=== PATIENT | female | born 1945 | race Caucasian/White ===

== ENCOUNTER 2019-10-10 14:24 | Inpatient (IN) | payer MEDICARE ==
[~2019-10-10] VITALS: Ht 167.6 cm; Wt 60.0 kg
[~2019-10-10 14:24] MED LIST: MECL-159 PO
[2019-10-10] MEDS ORDERED: normal saline 1000ml 1,000 ML IV ONE (14:55)
[2019-10-10 15:19] LABS: BASOPHILS % (AUTO) 0.3 % (0-1); EOSINOPHILS % (AUTO) 0.5 % (0-6); HEMATOCRIT 40.7 % (35.0-45.0); HEMOGLOBIN 13.1 g/dl (12.0-16.0); LYMPHOCYTES # (AUTO) 1.9 X10'3 (1.1-4.8); LYMPHOCYTES % (AUTO) 20.6 % (21-51); MEAN CORPUSCULAR HEMOGLOBIN 26.4 PG (27.0-31.0); MEAN CORPUSCULAR HGB CONC 32.2 g/dL (33.0-36.5); MEAN PLATELET VOLUME 7.5 FL (7.4-10.4); MONOCYTES # (AUTO) 0.8 X10'3 (0-0.9); MONOCYTES % (AUTO) 8.6 % (2-12); NEUTROPHILS # (AUTO) 6.5 X10'3 (1.8-7.7); PLATELET COUNT 307 X10'3 (140-440); RED BLOOD COUNT 4.97 X10'6 (4.20-5.60); RED CELL DISTRIBUTION WIDTH 16.4 % (11.5-14.5); WHITE BLOOD COUNT 9.3 X10'3 (4.5-11.0)
[2019-10-10 15:35] LABS: PARTIAL THROMBOPLASTIN TIME 25 SECONDS (22-32)
[2019-10-10 15:48] LABS: ALANINE AMINOTRANSFERASE 19 U/L (12-78); ALBUMIN 3.3 G/DL (3.4-5.0); ALBUMIN/GLOBULIN RATIO 0.8 (1.1-1.5); ALKALINE PHOSPHATASE 146 IU/L (46-116); ANION GAP 8 (8-16); ASPARTATE AMINO TRANSFERASE 46 U/L (10-37); BILIRUBIN,TOTAL 0.4 MG/DL (0.1-1.0); BLOOD UREA NITROGEN 18 MG/DL (7-18); BUN/CREATININE RATIO 14.1 (6.6-38.0); CALCIUM 11.2 MG/DL (8.5-10.1); CHLORIDE 121 MMOL/L (99-107); CREATININE 1.28 MG/DL (0.40-0.90); ETHANOL < 0.010 GM/DL (0.0-0.010); GLUCOSE 98 MG/DL (70-104); TOTAL CARBON DIOXIDE 32.8 MMOL/L (24-32); TOTAL PROTEIN 7.2 G/DL (6.4-8.2); eGFR 41 ML/MIN
[2019-10-10 15:51] LABS: SODIUM 162 MMOL/L (135-145)
[2019-10-10 16:02] LABS: CLARITY,URINE CLEAR (Clear); COLOR,URINE YELLOW (Yellow); GLUCOSE, URINE NEGATIVE (Neg); KETONES,URINE NEGATIVE (Neg); LEUKOCYTE ESTERASE ,URINE NEGATIVE (Neg); NITRITES, URINE NEGATIVE (Neg); OCCULT BLOOD,URINE NEGATIVE (Neg); PROTEIN,URINE NEGATIVE (Neg); UA COLLECTION TYPE STRAIGHT CATH; UROBILINOGEN,URINE 0.2 E.U/dL (0.2-1.0)
[2019-10-10 16:10] LABS: URINE AMPHETAMINE SCREEN NEGATIVE (Neg); URINE BARBITUATE SCREEN NEGATIVE (Neg); URINE BENZODIAZEPINES SCREEN NEGATIVE (Neg); URINE CANNABINOID SCREEN NEGATIVE (Neg); URINE COCAINE SCREEN NEGATIVE (Neg); URINE METHADONE SCREEN NEGATIVE (Neg); URINE OPIATE SCREEN NEGATIVE (Neg); URINE PHENCYCLIDINE SCREEN NEGATIVE (Neg)
[2019-10-10 16:28] LABS: MAGNESIUM 2.1 MG/DL (1.5-2.4); PHOSPHORUS 3.9 MG/DL (2.3-4.5)
[2019-10-10] MEDS ORDERED: potassium CL 20mEq in D5-1/2NS 1,000 ML IV SCH (16:30)
[2019-10-10 16:47] LABS: OSMOLALITY 331 MOSM/K (280-300)
[2019-10-10] MEDS: dextrose 5%-1/2 normal saline 1,000 ML IV SCH (17:02)
[2019-10-10] MEDS ORDERED: bisacodyl 10mg suppository rectal RC PRN (17:05)
[2019-10-10] MEDS ORDERED: potassium Cl 20 mEq SR tablet PO PRN (17:05)
[2019-10-10] MEDS ORDERED: HYDROcodone/acetaminophen 10/325mg tab PO PRN (17:05)
[2019-10-10] MEDS ORDERED: HYDROcodone/acetaminophen 5mg/325mg tablet PO PRN (17:05)
[2019-10-10] MEDS ORDERED: magnesium 4gm in 100ml NS 100 ML IV PRN (17:05)
[2019-10-10] MEDS ORDERED: magnesium 2GM in 50ml NS 50 ML IV PRN (17:05)
[2019-10-10] MEDS ORDERED: ondansetron/PF 4mg/2ml inj IV PRN (17:05)
[2019-10-10] MEDS ORDERED: morphine 2 MG/ML inj. syringe IV PRN ×2 (17:05)
[2019-10-10] MEDS ORDERED: acetaminophen 325mg tablet PO PRN ×2 (17:05)
[2019-10-10] MEDS ORDERED: magnesium Cl slow-release 64mg tablet PO PRN (17:05)
[2019-10-10] MEDS ORDERED: magnesium hydroxide 30ml (MOM) UD suspension PO PRN (17:05)
[2019-10-10] MEDS ORDERED: mag hydrox/Alum hydrox/simeth 30ml oral suspension PO PRN (17:05)
[2019-10-10] MEDS ORDERED: acetaminophen 650mg rectal suppository RC PRN (17:05)
[2019-10-10] MEDS ORDERED: potassium CL 10mEq/100ml bag 100 ML IV PRN (17:05)
[2019-10-10] MEDS ORDERED: diphenhydrAMINE 25mg capsule PO PRN (17:05)
[2019-10-10 17:41] LABS: HEMOGLOBIN A1C 5.9 % (4.5-6.2)
--- NOTE | 2019-10-10 19:12 | NUR ---
Patient in room ED 7. I have received report from RAMEZ CARDENAS IN ER and had the opportunity to ask questions. AWAITING PATIENT ARRIVAL.
[2019-10-10 19:15] VITALS: BP 141/75
--- NOTE | 2019-10-10 19:43 | NUR ---
PATIENT UP TO FLOOR VIA GURNEY. ACCOMPANIED BY DIRECTOR CLIENT SERVICESGARCIA MCFARLANE RN. PATIENT BELONGINGS PLACED IN BEDSIDE TABLE. PLACED ON DIP LUBE OPERATOR 60. BED ALARM ACTIVATED. ON ROOM AIR. 20 MEQ K IN NS INFUSING AT 100 ML/HR PER PROVIDER ORDER. MRSA SWAB OBTAINED. WILL CONTINUE TO MONITOR CLOSELY.
[2019-10-10] MEDS: K and/or MAG REPLACEMENT MC SCH (20:00)
[2019-10-10] MEDS: heparin, porcine 5000 units/ml vial SQ SCH (21:09)
[2019-10-10 23:00] VITALS: BP 156/56
[2019-10-11 03:00] VITALS: BP 113/61
[2019-10-11] MEDS: dextrose 5%-1/2 normal saline 1,000 ML IV SCH (03:50)
[2019-10-11 05:15] LABS: BASOPHILS % (AUTO) 0.6 % (0-1); EOSINOPHILS # (AUTO) 0.1 X10'3 (0-0.9); EOSINOPHILS % (AUTO) 1.6 % (0-6); HEMATOCRIT 39.1 % (35.0-45.0); HEMOGLOBIN 12.7 g/dl (12.0-16.0); LYMPHOCYTES % (AUTO) 29.1 % (21-51); MEAN CORPUSCULAR HEMOGLOBIN 26.8 PG (27.0-31.0); MEAN CORPUSCULAR HGB CONC 32.4 g/dL (33.0-36.5); MEAN CORPUSCULAR VOLUME 82.8 FL (78-98); MEAN PLATELET VOLUME 7.8 FL (7.4-10.4); MONOCYTES # (AUTO) 0.6 X10'3 (0-0.9); MONOCYTES % (AUTO) 8.3 % (2-12); NEUTROPHILS # (AUTO) 4.1 X10'3 (1.8-7.7); NEUTROPHILS % (AUTO) 60.4 % (42-75); PLATELET COUNT 281 X10'3 (140-440); RED BLOOD COUNT 4.72 X10'6 (4.20-5.60); WHITE BLOOD COUNT 6.8 X10'3 (4.5-11.0)
[2019-10-11 05:32] LABS: ALANINE AMINOTRANSFERASE 20 U/L (12-78); ALBUMIN/GLOBULIN RATIO 0.8 (1.1-1.5); ALKALINE PHOSPHATASE 137 IU/L (46-116); ANION GAP 7 (8-16); ASPARTATE AMINO TRANSFERASE 48 U/L (10-37); BILIRUBIN,TOTAL 0.5 MG/DL (0.1-1.0); BLOOD UREA NITROGEN 14 MG/DL (7-18); BUN/CREATININE RATIO 12.5 (6.6-38.0); CALCIUM 10.8 MG/DL (8.5-10.1); CHLORIDE 121 MMOL/L (99-107); CHOL/HDL RATIO 3.7 (0.00-4.99); CHOLESTEROL 240 MG/DL (0-200); CREATININE 1.12 MG/DL (0.40-0.90); GLUCOSE 105 MG/DL (70-104); HDL CHOLESTEROL 65 MG/DL (35-60); LDL CHOLESTEROL 146 MG/DL (50-100); MAGNESIUM 1.8 MG/DL (1.5-2.4); PHOSPHORUS 3.4 MG/DL (2.3-4.5); TOTAL CARBON DIOXIDE 32.2 MMOL/L (24-32); TOTAL PROTEIN 6.6 G/DL (6.4-8.2); TRIGLYCERIDES 148 MG/DL (20-135); eGFR 47 ML/MIN
[2019-10-11 05:50] LABS: POTASSIUM 2.7 MMOL/L (3.5-5.1); SODIUM 160 MMOL/L (135-145)
[2019-10-11] MEDS: potassium Cl 20 mEq SR tablet PO PRN ×3 (05:51→22:15)
[2019-10-11 06:00] VITALS: BP 140/71
--- NOTE | 2019-10-11 06:16 | NUR ---
CRITICAL NA-160 AND K- 2.7. RESULTS REPORTED TO DR. BOLANOS VIA TELEPHONE. REPLACE ELECTROLYTES PER PROTOCOL. DAY RN AWARE.
--- NOTE | 2019-10-11 06:17 | NUR ---
Patient in room PCU 3009. I have received report from Nabor MYRICK and had the opportunity to ask questions and assume patient care.
[2019-10-11] MEDS: heparin, porcine 5000 units/ml vial SQ SCH ×2 (07:39→22:16)
[2019-10-11] MEDS: K and/or MAG REPLACEMENT MC SCH ×2 (08:00→20:00)
--- NOTE | 2019-10-11 10:02 | NUR ---
Pt with a low Bret of 11. Per physical assessment pt with no edema or wounds. Pt admit with confusion with hx dementia. Pt documented with garbled speech and expressive aphasia. Pt currently on a heart healthy diet, pending documentation of PO intake. Pt would benefit from BSS with ST to monitor need for texture modification, recommended consult has been ordered. Will continue to follow. Addendum: 10/11/19 at [address] Amended: Links added.
[2019-10-11 11:00] VITALS: BP 134/72
[2019-10-11 11:07] LABS: OSMOLALITY UA 540 MOSM/K (50-1400)
[2019-10-11 11:08] LABS: SODIUM,URINE RANDOM 43 MEQ/L
[2019-10-11] MEDS: dextrose 5%-water 1,000 ML IV SCH ×3 (11:21→22:41)
[2019-10-11] MEDS ORDERED: CHOL500044 PO (14:45)
[2019-10-11] MEDS ORDERED: HYDR50TA65 PO (14:45)
[2019-10-11] MEDS ORDERED: LORA-268 PO (14:45)
[2019-10-11] MEDS ORDERED: TRIA30CR TP (14:45)
[2019-10-11] MEDS ORDERED: MEMA10TA PO (14:45)
[2019-10-11] MEDS ORDERED: OMEP40CA13 PO (14:45)
[2019-10-11] MEDS ORDERED: TEMA7.5C2 PO (14:45)
[2019-10-11] MEDS ORDERED: GALA4TAB PO (14:45)
[2019-10-11] MEDS ORDERED: OLAN5TAB3 PO (14:45)
--- NOTE | 2019-10-11 14:53 | NUR ---
Addie Live. 3009. [facility] Home Med Rec is complete and ready to be reviewed. TY. Samson [phone]
[2019-10-11 15:00] VITALS: BP 133/67
--- NOTE | 2019-10-11 15:54 | NUR ---
Paged Addie Stoddard. [phone]. COUNTS INCLUDE 234 BEDS AT THE [facility] patient nasal swab came back positive for MRSA. Samson [id number]
--- NOTE | 2019-10-11 18:06 | NUR ---
Problems reprioritized. Patient report given, questions answered & plan of care reviewed with Nabor MYRICK.
--- NOTE | 2019-10-11 18:30 | NUR ---
Patient in room PCU 3009. I have received report from RAMEZ DYER and had the opportunity to ask questions and assume patient care. PATIENT AWAKE FOR BEDSIDE REPORT. ON ROOM AIR, D5W INFUSING AT 100 ML/HR PER PROVIDER ORDER. WILL CONTINUE TO MONITOR CLOSELY.
[2019-10-11 18:45] VITALS: BP 127/73
[2019-10-11] MEDS ORDERED: GALANTAMINE 4 MG PO SCH (20:00)
[2019-10-11] MEDS: GALANTAMINE 4 MG PO SCH (20:00)
[2019-10-11] MEDS: LORazepam 0.5 MG tablet PO SCH (22:12)
[2019-10-11] MEDS: memantine 5mg tablet PO SCH (22:12)
[2019-10-11] MEDS: OLANZAPINE 5 MG TABLET PO SCH (22:13)
[2019-10-11] MEDS: hydrOXYzine 25 MG tablet PO SCH (22:14)
[2019-10-11] MEDS: triamcinolone acet 0.1% cream 15gm TP SCH (22:17)
[2019-10-11] MEDS ORDERED: LIDOcaine 2% 10ml TOPICAL JELLY (Urojet) TP ONE (22:30)
[2019-10-11 23:00] VITALS: BP 136/64
[2019-10-12] VITALS (7 sets, daily range): BP systolic 81–129; BP diastolic 50–106
[2019-10-12 05:09] LABS: BASOPHILS % (AUTO) 0.3 % (0-1); EOSINOPHILS # (AUTO) 0.2 X10'3 (0-0.9); EOSINOPHILS % (AUTO) 1.5 % (0-6); HEMATOCRIT 35.9 % (35.0-45.0); HEMOGLOBIN 11.7 g/dl (12.0-16.0); LYMPHOCYTES # (AUTO) 2.1 X10'3 (1.1-4.8); LYMPHOCYTES % (AUTO) 19.8 % (21-51); MEAN CORPUSCULAR HGB CONC 32.6 g/dL (33.0-36.5); MEAN PLATELET VOLUME 8.4 FL (7.4-10.4); MONOCYTES # (AUTO) 0.7 X10'3 (0-0.9); NEUTROPHILS # (AUTO) 7.5 X10'3 (1.8-7.7); NEUTROPHILS % (AUTO) 71.4 % (42-75); PLATELET COUNT 239 X10'3 (140-440); RED BLOOD COUNT 4.33 X10'6 (4.20-5.60); RED CELL DISTRIBUTION WIDTH 16.3 % (11.5-14.5); WHITE BLOOD COUNT 10.4 X10'3 (4.5-11.0)
[2019-10-12 05:42] LABS: ALANINE AMINOTRANSFERASE 23 U/L (12-78); ALBUMIN 2.6 G/DL (3.4-5.0); ALBUMIN/GLOBULIN RATIO 0.8 (1.1-1.5); ALKALINE PHOSPHATASE 120 IU/L (46-116); ANION GAP 8 (8-16); ASPARTATE AMINO TRANSFERASE 35 U/L (10-37); BILIRUBIN,TOTAL 0.4 MG/DL (0.1-1.0); BLOOD UREA NITROGEN 17 MG/DL (7-18); BUN/CREATININE RATIO 15.7 (6.6-38.0); CALCIUM 10.2 MG/DL (8.5-10.1); CHLORIDE 114 MMOL/L (99-107); CREATININE 1.08 MG/DL (0.40-0.90); GLUCOSE 105 MG/DL (70-104); MAGNESIUM 1.6 MG/DL (1.5-2.4); PHOSPHORUS 3.8 MG/DL (2.3-4.5); POTASSIUM 3.6 MMOL/L (3.5-5.1); SODIUM 149 MMOL/L (135-145); TOTAL CARBON DIOXIDE 27.3 MMOL/L (24-32); TOTAL PROTEIN 5.9 G/DL (6.4-8.2); eGFR 49 ML/MIN
--- NOTE | 2019-10-12 06:26 | NUR ---
Problems reprioritized. Patient report given, questions answered & plan of care reviewed with RAMEZ DYER.
--- NOTE | 2019-10-12 06:27 | NUR ---
Patient in room PCU 3009. I have received report from Nabor MYRICK and had the opportunity to ask questions and assume patient care.
[2019-10-12] MEDS: triamcinolone acet 0.1% cream 15gm TP SCH ×2 (08:00→20:25)
[2019-10-12] MEDS: GALANTAMINE 4 MG PO SCH ×2 (08:00→20:00)
[2019-10-12] MEDS: K and/or MAG REPLACEMENT MC SCH ×2 (08:00→20:00)
[2019-10-12] MEDS: heparin, porcine 5000 units/ml vial SQ SCH ×2 (08:10→20:26)
[2019-10-12] MEDS: vitamin D (cholecalciferol) 1,000 unit tablet PO SCH (08:10)
[2019-10-12] MEDS: memantine 5mg tablet PO SCH ×2 (08:10→20:26)
[2019-10-12] MEDS: pantoprazole 40mg Tablet.DR PO SCH (08:10)
[2019-10-12] MEDS: LORazepam 0.5 MG tablet PO SCH ×2 (08:10→20:26)
[2019-10-12] MEDS: OLANZAPINE 5 MG TABLET PO SCH ×2 (08:10→20:26)
--- NOTE | 2019-10-12 12:56 | NUR ---
IV infiltrated. paged picc to place new IV.
[2019-10-12] MEDS: dextrose 5%-water 1,000 ML IV SCH ×2 (15:59→20:37)
--- NOTE | 2019-10-12 18:14 | NUR ---
Problems reprioritized. Patient report given, questions answered & plan of care reviewed with Gabrielle MYRICK.
--- NOTE | 2019-10-12 18:16 | NUR ---
Patient in room U 3009. I have received report from RAMEZ Davies and had the opportunity to ask questions and assume patient care. Addendum: 10/12/19 at 1817 by Sapphire Cassidy RN Amended: Links added.
[2019-10-12] MEDS: hydrOXYzine 25 MG tablet PO SCH (20:26)
[2019-10-13 02:00] VITALS: BP 114/48
[2019-10-13 05:26] LABS: BASOPHILS % (AUTO) 0.2 % (0-1); EOSINOPHILS # (AUTO) 0.1 X10'3 (0-0.9); EOSINOPHILS % (AUTO) 0.8 % (0-6); HEMATOCRIT 37.2 % (35.0-45.0); HEMOGLOBIN 12.1 g/dl (12.0-16.0); LYMPHOCYTES # (AUTO) 2.6 X10'3 (1.1-4.8); LYMPHOCYTES % (AUTO) 18.3 % (21-51); MEAN CORPUSCULAR HEMOGLOBIN 26.7 PG (27.0-31.0); MEAN CORPUSCULAR HGB CONC 32.5 g/dL (33.0-36.5); MEAN CORPUSCULAR VOLUME 82.1 FL (78-98); MEAN PLATELET VOLUME 8.6 FL (7.4-10.4); MONOCYTES # (AUTO) 0.9 X10'3 (0-0.9); MONOCYTES % (AUTO) 6.5 % (2-12); NEUTROPHILS # (AUTO) 10.6 X10'3 (1.8-7.7); NEUTROPHILS % (AUTO) 74.2 % (42-75); PLATELET COUNT 263 X10'3 (140-440); RED BLOOD COUNT 4.53 X10'6 (4.20-5.60); RED CELL DISTRIBUTION WIDTH 16.5 % (11.5-14.5); WHITE BLOOD COUNT 14.3 X10'3 (4.5-11.0)
[2019-10-13 05:41] LABS: ALANINE AMINOTRANSFERASE 23 U/L (12-78); ALBUMIN 2.7 G/DL (3.4-5.0); ALBUMIN/GLOBULIN RATIO 0.8 (1.1-1.5); ALKALINE PHOSPHATASE 127 IU/L (46-116); ANION GAP 7 (8-16); ASPARTATE AMINO TRANSFERASE 25 U/L (10-37); BILIRUBIN,TOTAL 0.5 MG/DL (0.1-1.0); BLOOD UREA NITROGEN 14 MG/DL (7-18); BUN/CREATININE RATIO 15.1 (6.6-38.0); CALCIUM 10.3 MG/DL (8.5-10.1); CHLORIDE 109 MMOL/L (99-107); CREATININE 0.93 MG/DL (0.40-0.90); GLUCOSE 116 MG/DL (70-104); MAGNESIUM 1.4 MG/DL (1.5-2.4); PHOSPHORUS 3.8 MG/DL (2.3-4.5); POTASSIUM 3.2 MMOL/L (3.5-5.1); SODIUM 145 MMOL/L (135-145); TOTAL CARBON DIOXIDE 29.4 MMOL/L (24-32); TOTAL PROTEIN 6.2 G/DL (6.4-8.2); eGFR 59 ML/MIN
[2019-10-13] MEDS: dextrose 5%-water 1,000 ML IV SCH ×2 (05:59→21:50)
[2019-10-13 06:00] VITALS: BP 108/48
--- NOTE | 2019-10-13 06:08 | NUR ---
Problems reprioritized. Patient report given, questions answered & plan of care reviewed with RAMEZ COPPOLA.
--- NOTE | 2019-10-13 06:34 | NUR ---
Patient in room PCU 3009. I have received report from Aleksandra MYRICK and had the opportunity to ask questions and assume patient care. Pt laying in bed, eyes closed, no signs of distress, will continue to monitor.
[2019-10-13] MEDS: GALANTAMINE 4 MG PO SCH ×2 (08:00→20:00)
[2019-10-13] MEDS: vitamin D (cholecalciferol) 1,000 unit tablet PO SCH (08:00)
[2019-10-13] MEDS: OLANZAPINE 5 MG TABLET PO SCH (08:00)
[2019-10-13] MEDS: K and/or MAG REPLACEMENT MC SCH ×3 (08:00→20:00)
[2019-10-13] MEDS: memantine 5mg tablet PO SCH ×2 (08:00→22:19)
[2019-10-13] MEDS: LORazepam 0.5 MG tablet PO SCH (08:00)
[2019-10-13] MEDS: pantoprazole 40mg Tablet.DR PO SCH (08:00)
[2019-10-13] MEDS: triamcinolone acet 0.1% cream 15gm TP SCH ×2 (08:00→22:21)
[2019-10-13] MEDS: heparin, porcine 5000 units/ml vial SQ SCH ×2 (09:07→22:18)
--- NOTE | 2019-10-13 09:16 | NUR ---
Patient very difficult to wake, opens eyes to voice but then falls back to sleep. Discussed with Dr. Griffin, orders to hold Zyprexa and Ativan this AM. Unable to give any other PO medications at this time. Will attempt to give medications today.
[2019-10-13 11:00] VITALS: BP 117/69
[2019-10-13] MEDS: potassium CL 10mEq/100ml bag 100 ML IV PRN ×4 (14:00→17:47)
[2019-10-13 15:00] VITALS: BP 111/55
--- NOTE | 2019-10-13 16:03 | NUR ---
Attempted to turn patient on side for repositioning, patient was awake and stated "I don't think so, I don't like this". Attempted to reposition patient and patient resisted, will continue to observe and promote repositioning.
--- NOTE | 2019-10-13 16:13 | NUR ---
PAGER ID: [phone] MESSAGE: Allegra cazares [phone]. RE Mary Ayon 3009. Pt is more awake, slightly agitated. Do you want to restart Ativan/Zyprexa dosing tonight or have PRNs or med changes? Thanks!
--- NOTE | 2019-10-13 16:41 | NUR ---
Per Dr. Griffin, do not restart any medications that could sedate or alter her mental status. If patient becomes agitated, can use redirection, other nonchemical approaches to help patient.
[2019-10-13] MEDS ORDERED: magnesium 2GM in 50ml NS 50 ML IV PRN (17:30)
[2019-10-13] MEDS ORDERED: potassium Cl 20 mEq SR tablet PO PRN ×2 (17:30)
[2019-10-13] MEDS ORDERED: magnesium 4gm in 100ml NS 100 ML IV PRN (17:30)
[2019-10-13] MEDS ORDERED: magnesium Cl slow-release 64mg tablet PO PRN (17:30)
--- NOTE | 2019-10-13 18:49 | NUR ---
Problems reprioritized. Patient report given, questions answered & plan of care reviewed with Liz MYRICK.
--- NOTE | 2019-10-13 18:50 | NUR ---
Patient in room PCU 3009. I have received report from ANAT MYRICK and had the opportunity to ask questions and assume patient care.
[2019-10-13 19:00] VITALS: BP 110/52
[2019-10-13] MEDS: hydrOXYzine 25 MG tablet PO SCH (22:19)
[2019-10-13 23:00] VITALS: BP 127/55
[2019-10-14] MEDS: dextrose 5%-water 1,000 ML IV SCH (00:52)
[2019-10-14 03:00] VITALS: BP 125/60
[2019-10-14 05:55] LABS: BASOPHILS % (AUTO) 0.1 % (0-1); EOSINOPHILS # (AUTO) 0.2 X10'3 (0-0.9); EOSINOPHILS % (AUTO) 1.8 % (0-6); HEMATOCRIT 34.3 % (35.0-45.0); HEMOGLOBIN 11.3 g/dl (12.0-16.0); LYMPHOCYTES # (AUTO) 1.5 X10'3 (1.1-4.8); LYMPHOCYTES % (AUTO) 16.7 % (21-51); MEAN CORPUSCULAR HGB CONC 33.1 g/dL (33.0-36.5); MEAN CORPUSCULAR VOLUME 81.5 FL (78-98); MEAN PLATELET VOLUME 8.3 FL (7.4-10.4); MONOCYTES # (AUTO) 0.8 X10'3 (0-0.9); MONOCYTES % (AUTO) 9.1 % (2-12); NEUTROPHILS # (AUTO) 6.4 X10'3 (1.8-7.7); NEUTROPHILS % (AUTO) 72.3 % (42-75); PLATELET COUNT 263 X10'3 (140-440); RED BLOOD COUNT 4.21 X10'6 (4.20-5.60); RED CELL DISTRIBUTION WIDTH 16.6 % (11.5-14.5); WHITE BLOOD COUNT 8.9 X10'3 (4.5-11.0)
--- NOTE | 2019-10-14 06:00 | NUR ---
Patient refused 0600 vital signs
--- NOTE | 2019-10-14 06:00 | NUR ---
Patient refused 0600 Vital signs
[2019-10-14 06:11] LABS: ALANINE AMINOTRANSFERASE 38 U/L (12-78); ALBUMIN 2.5 G/DL (3.4-5.0); ALBUMIN/GLOBULIN RATIO 0.7 (1.1-1.5); ALKALINE PHOSPHATASE 118 IU/L (46-116); ANION GAP 7 (8-16); ASPARTATE AMINO TRANSFERASE 35 U/L (10-37); BILIRUBIN,TOTAL 0.4 MG/DL (0.1-1.0); BLOOD UREA NITROGEN 11 MG/DL (7-18); BUN/CREATININE RATIO 11.6 (6.6-38.0); CHLORIDE 109 MMOL/L (99-107); CREATININE 0.95 MG/DL (0.40-0.90); GLUCOSE 127 MG/DL (70-104); MAGNESIUM 2.3 MG/DL (1.5-2.4); PHOSPHORUS 3.6 MG/DL (2.3-4.5); POTASSIUM 3.1 MMOL/L (3.5-5.1); SODIUM 143 MMOL/L (135-145); TOTAL PROTEIN 5.9 G/DL (6.4-8.2); eGFR 57 ML/MIN
--- NOTE | 2019-10-14 06:11 | NUR ---
Patient in room PCU 3009. I have received report from ANAT MYRICK and had the opportunity to ask questions and assume patient care.
--- NOTE | 2019-10-14 06:13 | NUR ---
Problems reprioritized. Patient report given, questions answered & plan of care reviewed with ANAT MYRICK.
--- NOTE | 2019-10-14 06:21 | NUR ---
Patient in room PCU 3009. I have received report from Yudy MYRICK and had the opportunity to ask questions and assume patient care. Patient laying in bed, eyes closed, no signs of distress, bed alarm active, D5W infusing at ordered rate.
[2019-10-14] MEDS: K and/or MAG REPLACEMENT MC SCH ×4 (08:00→20:00)
[2019-10-14] MEDS: GALANTAMINE 4 MG PO SCH ×2 (08:00→20:00)
[2019-10-14] MEDS: triamcinolone acet 0.1% cream 15gm TP SCH ×2 (08:00→20:20)
[2019-10-14] MEDS: potassium CL 10mEq/100ml bag 100 ML IV PRN ×4 (08:51→12:35)
[2019-10-14] MEDS: memantine 5mg tablet PO SCH ×2 (08:52→20:20)
[2019-10-14] MEDS: heparin, porcine 5000 units/ml vial SQ SCH ×2 (08:52→20:20)
[2019-10-14] MEDS: vitamin D (cholecalciferol) 1,000 unit tablet PO SCH (08:52)
[2019-10-14] MEDS: pantoprazole 40mg Tablet.DR PO SCH (08:52)
[2019-10-14 11:00] VITALS: BP 102/58
--- NOTE | 2019-10-14 12:09 | NUR ---
Initial: patient has h/o dementia, presents from memory care unit with encephalopathy, hypernatremia, MARGARITA. Sodium on admission was 162 on admission and now down to 143. No BM for five days, last documented on 10/08, likely constipated. Has prn bowel care, none routine. Would benefit from routine bowel care for bowel regularity, notified MD of recommendation. Appetite is fair, only eating about 25-49% of heart healthy, mechanical soft meals. Seen by speech therapist on 10/12, reports needing feeder, some slowness with chewing and mechanical soft foods, grind all, and thin liquids. May benefit from ONS in view of suboptimal PO intake. Recommend: 1. continue heart healthy, mechanical soft diet grind all per ST recs 2. consider ONS in view of suboptimal PO 3. Routine bowel care 4. weight per rx Addendum: 10/14/19 at [address] Amended: Links added.
[2019-10-14] MEDS: lactose-reduced food (Ensure Enlive) - 237ml bottle PO SCH ×2 (13:00→18:16)
--- NOTE | 2019-10-14 15:00 | NUR ---
Patient refused 1500 vital signs
--- NOTE | 2019-10-14 15:43 | NUR ---
PAGER ID: [phone] MESSAGE: Allegra cazares [phone]. Mary Ayon9. Pt's daily labs today. Do you want daily labs ordered? Thanks!
[2019-10-14 18:00] VITALS: BP 117/61
--- NOTE | 2019-10-14 18:12 | NUR ---
Problems reprioritized. Patient report given, questions answered & plan of care reviewed with Trung MYRICK.
[2019-10-14] MEDS: hydrOXYzine 25 MG tablet PO SCH (20:19)
[2019-10-14 22:00] VITALS: BP 112/65
[2019-10-15] MEDS: dextrose 5%-water 1,000 ML IV SCH (01:14)
[2019-10-15 02:00] VITALS: BP 134/75
[2019-10-15 05:37] LABS: BASOPHILS % (AUTO) 0.2 % (0-1); EOSINOPHILS # (AUTO) 0.1 X10'3 (0-0.9); EOSINOPHILS % (AUTO) 1.3 % (0-6); HEMATOCRIT 35.6 % (35.0-45.0); HEMOGLOBIN 11.8 g/dl (12.0-16.0); LYMPHOCYTES # (AUTO) 1.8 X10'3 (1.1-4.8); LYMPHOCYTES % (AUTO) 21.3 % (21-51); MEAN CORPUSCULAR HEMOGLOBIN 26.8 PG (27.0-31.0); MEAN CORPUSCULAR VOLUME 81.3 FL (78-98); MEAN PLATELET VOLUME 8.8 FL (7.4-10.4); MONOCYTES # (AUTO) 0.9 X10'3 (0-0.9); MONOCYTES % (AUTO) 11.1 % (2-12); NEUTROPHILS # (AUTO) 5.5 X10'3 (1.8-7.7); NEUTROPHILS % (AUTO) 66.1 % (42-75); PLATELET COUNT 266 X10'3 (140-440); RED BLOOD COUNT 4.38 X10'6 (4.20-5.60); RED CELL DISTRIBUTION WIDTH 16.6 % (11.5-14.5); WHITE BLOOD COUNT 8.3 X10'3 (4.5-11.0)
[2019-10-15 06:00] VITALS: BP 122/70
--- NOTE | 2019-10-15 06:00 | NUR ---
Patient in room PCU 3009. I have received report from Trung MYRICK and had the opportunity to ask questions and assume patient care.
[2019-10-15 06:11] LABS: ALANINE AMINOTRANSFERASE 37 U/L (12-78); ALBUMIN 2.6 G/DL (3.4-5.0); ALBUMIN/GLOBULIN RATIO 0.8 (1.1-1.5); ALKALINE PHOSPHATASE 114 IU/L (46-116); ANION GAP 8 (8-16); ASPARTATE AMINO TRANSFERASE 26 U/L (10-37); BILIRUBIN,TOTAL 0.3 MG/DL (0.1-1.0); BLOOD UREA NITROGEN 12 MG/DL (7-18); BUN/CREATININE RATIO 12.2 (6.6-38.0); CHLORIDE 108 MMOL/L (99-107); CREATININE 0.98 MG/DL (0.40-0.90); GLUCOSE 119 MG/DL (70-104); MAGNESIUM 1.9 MG/DL (1.5-2.4); POTASSIUM 3.4 MMOL/L (3.5-5.1); SODIUM 142 MMOL/L (135-145); eGFR 55 ML/MIN
[2019-10-15] MEDS: lactose-reduced food (Ensure Enlive) - 237ml bottle PO SCH (07:49)
[2019-10-15] MEDS: K and/or MAG REPLACEMENT MC SCH ×2 (08:00)
[2019-10-15] MEDS: GALANTAMINE 4 MG PO SCH (08:00)
[2019-10-15] MEDS: vitamin D (cholecalciferol) 1,000 unit tablet PO SCH (08:00)
[2019-10-15] MEDS: pantoprazole 40mg Tablet.DR PO SCH (08:00)
[2019-10-15] MEDS: triamcinolone acet 0.1% cream 15gm TP SCH (08:00)
[2019-10-15] MEDS: memantine 5mg tablet PO SCH (08:00)
[2019-10-15] MEDS: heparin, porcine 5000 units/ml vial SQ SCH (08:26)
[2019-10-15 11:00] VITALS: BP 97/58
--- NOTE | 2019-10-15 11:20 | NUR ---
Called report to receiving nurse Mari at [facility] post acute. per Mari, their liason Susan will arrange [facility] and contact us when they have a picker/puller time.
--- NOTE | 2019-10-15 13:00 | NUR ---
Per MD orders, patient stable for transfer to [facility]. Transfer report called to receiving nurse Mari and all questions answered. PIV discontinued; cannula intact. Tele monitoring discontinued. All belongings sent with patient. Transferred to [facility] via [facility] accompanied by [facility] personnel.
== END 2019-10-15 14:20 | DRG 682 ==
LOC: ER 14:24 → ED HOLD 17:02 → EDBEDREQ 18:51 → PCU 3S 19:15
PROVIDERS: ADMIT Family Medicine; ATTEND Internal Medicine
DX: N17.9 Acute kidney failure, unspecified (principal); G93.41 Metabolic encephalopathy; E87.0 Hyperosmolality and hypernatremia; E87.1 Hypo-osmolality and hyponatremia; E87.6 Hypokalemia; E86.0 Dehydration; F03.90 Unspecified dementia, unspecified severity, without behavioral disturbance, psychotic disturbance, mood disturbance, and anxiety; Z79.899 Other long term (current) drug therapy
CPT/HCPCS: 36415; 70450; 71045; 80053; 80061; 80305; 80320; 81003; 82140; 83036; 83735; 83930; 83935; 84100; 84300; 85025; 85610; 85730; 87081; 92508; 92616; 93005; 96360; 97116; 97161; 97530; 99285; G0378; J1644; J3475; J3480; J7030; J7070; Q0163; Z7610